=== PATIENT | male | born 1950 | race Caucasian/White ===

== ENCOUNTER 2017-07-14 15:00 | Emergency (ER) | payer OTHER ==
[2017-07-14 15:24] VITALS: BP 183/81; PULSE 86; RESP 18; TEMP 98.9; O2SAT 99
[2017-07-14 16:00] LABS: AUTOMATED NEUTROPHIL # 4.1 TH/MM3 (1.8-7.7); BASOPHIL % 0.5 % (0.0-2.0); EOSINOPHIL % 0.6 % (0.0-4.0); HEMATOCRIT 37.4 % (39.0-51.0); HEMOGLOBIN 12.7 GM/DL (13.0-17.0); LYMPH % 27.6 % (9.0-44.0); LYMPHOCYTE # 1.9 TH/MM3 (1.0-4.8); MEAN CELL VOLUME 98.5 FL (80.0-100.0); MEAN CORPUSCULAR HEMOGLOBIN 33.6 PG (27.0-34.0); MEAN CORPUSCULAR HGB CONC 34.1 % (32.0-36.0); MEAN PLATELET VOLUME 8.3 FL (7.0-11.0); MONO % 12.9 % (0.0-8.0); MONOCYTE # 0.9 TH/MM3 (0-0.9); NEUT % 58.4 % (16.0-70.0); PLATELET COUNT 136 TH/MM3 (150-450); RED BLOOD COUNT 3.79 MIL/MM3 (4.50-5.90); RED CELL DISTRIBUTION WIDTH 14.3 % (11.6-17.2)
[2017-07-14 16:17] LABS: ALBUMIN 3.8 GM/DL (3.4-5.0); ALT (GPT) 38 U/L (12-78); AST (GOT) 50 U/L (15-37); BLOOD UREA NITROGEN 11 MG/DL (7-18); CALCIUM 8.7 MG/DL (8.5-10.1); CHLORIDE 103 MEQ/L (98-107); CREATININE 1.02 MG/DL (0.60-1.30); GLOMERULAR FILTRATION RATE 73 ML/MIN (>89); GLUCOSE,RANDOM 104 MG/DL (74-106); SODIUM (NA) 138 MEQ/L (136-145)
[2017-07-14 16:21] LABS: ALKALINE PHOSPHATASE 93 U/L (45-117); TOTAL BILIRUBIN ADULT 0.6 MG/DL (0.2-1.0)
[2017-07-14 16:37] LABS: ACETAMINOPHEN LESS THAN 2.0 MCG/ML (10.0-30.0)
--- NOTE | 2017-07-14 16:52 | RADRPT ---
EXAM DATE/TIME: 07/14/2017 16:34 [place] COMPARISON: No previous studies available for comparison. INDICATIONS : Altered mental status with confusion. RADIATION DOSE: 56.35 CTDIvol (mGy) MEDICAL HISTORY : None SURGICAL HISTORY : None. ENCOUNTER: Initial ACUITY: 1 day PAIN SCALE: 1/10 LOCATION: Bilateral cranial TECHNIQUE: Multiple contiguous axial images were obtained of the head. Using automated exposure control and adj ustment of the mA and/or kV according to patient size, radiation dose was kept as low as reasonably a chievable to obtain optimal diagnostic quality images. DICOM format image data is available electro nically for review and comparison. FINDINGS: CEREBRUM: The ventricles are normal for age. No evidence of midline shift, mass lesion, hemorrhage or acute in farction. No extra-axial fluid collections are seen. POSTERIOR FOSSA: The cerebellum and brainstem are intact. The 4th ventricle is midline. The cerebellopontine angle i s unremarkable. EXTRACRANIAL: The visualized portion of the orbits is intact. SKULL: The calvaria is intact. No evidence of skull fracture. CONCLUSION: Negative for acute process.. Fred Grady MD FACR on July 14, 2017 at 16:49 Board Certified Radiologist. This report was verified electronically.
--- NOTE | 2017-07-14 17:25 | PD ---
HPI Chief Complaint: Psychiatric Symptoms Time Seen by Provider: 16:45 Travel History International Travel<30 days: No Contact w/Intl Traveler<30days: No Traveled to known affect area: No History of Present Illness HPI 66-year-old male that presents to the ED for evaluation of psychiatric illness. Patient was Christensen acted by police after apparently he has been found to be somewhat altered in mentation. Apparently per Christensen act he's had a decline in his mental status. Per patient he is about to be evicted from his apartment tender to possible altered mental status. Patient apparently went see his provider recently but he cannot remember that he actually saw his provider. This concerned the provider as well as police and they Christensen acted him for his unsafety. He denies any chest pain or shortness of breath. No other medical issues. Per patient he takes no medications. Per report there is concerned the patient might be having early dementia. He has no allergies to medication. Symptoms per patient appear to be ongoing since last year. He himself denies any mental issues. It does tell me that he does smoke weed and drinks beer on occasion otherwise no other substance abuse. Has not seen a psychiatrist. Has never been Christensen acted in the past. Symptoms appear to have worsened today secondary to patient's inability to remember previous visit with his doctor. [facility] Past Medical History Medical History: Denies Significant Hx ?: Not Past Surgical History Surgical History: No Previous Surgery Social History Alcohol Use: No Tobacco Use: Yes Substance Use: Yes (MARIJUANA ) Allergies-Medications (Allergen,Severity, Reaction): Coded Allergies: No Known Allergies (Verified Allergy, Unknown, 07/14/17) Reported Meds & Prescriptions Reported Meds & Active Scripts Active No Active Prescriptions or Reported Medications Review of Systems Except as stated in HPI: all other systems reviewed are Neg Physical Exam Narrative GENERAL: SKIN: Warm and dry. HEAD: Atraumatic. Normocephalic. EYES: Pupils equal and round. No scleral icterus. No injection or drainage. ENT: No nasal bleeding or discharge. Mucous membranes pink and moist. Tongue is midline. No uvula devia NECK: Trachea midline. No JVD. CARDIOVASCULAR: Regular rate and rhythm. No murmurs, S3, S4. RESPIRATORY: No accessory muscle use. Clear to auscultation. Breath sounds equal bilaterally. GASTROINTESTINAL: Abdomen soft, non-tender, nondistended. Hepatic and splenic margins not palpable. MUSCULOSKELETAL: Extremities without clubbing, cyanosis, or edema. No obvious deformities. Full range of motion of the upper and lower extremities bilaterally. 2+ pulses bilaterally. NEUROLOGICAL: Awake and alert. No obvious cranial nerve deficits. Motor grossly within normal limits. Five out of 5 muscle strength in the arms and legs. Normal speech. PSYCHIATRIC: Appropriate mood and affect; insight and judgment normal. Data Data Last Documented VS Vital Signs Date Time Temp Pulse Resp B/P (MAP) Pulse Ox O2 Delivery O2 Flow Rate FiO2 07/15/17 04:00 98.5 88 17 129/66 (87) 96 Room Air Orders Orders Complete Blood Count With Diff (07/14/17 15:26) Comprehensive Metabolic Panel (07/14/17 15:26) Psych Screen (07/14/17 15:26) Drug Screen, Random Urine (07/14/17 15:26) Alcohol (Ethanol) (07/14/17 15:26) Salicylates (Aspirin) (07/14/17 15:26) Tylenol (Acetaminophen) (07/14/17 15:26) Ct Brain W/O Iv Contrast(Rout) (07/14/17 ) Diet Regular Basic (07/15/17 Breakfast) Diet Regular Basic (07/15/17 Lunch) Ed Discharge Order (07/15/17 14:08) Labs Laboratory Tests Test 07/14/17 15:36 White Blood Count 7.0 TH/MM3 Red Blood Count 3.79 MIL/MM3 Hemoglobin 12.7 GM/DL Hematocrit 37.4 % Mean Corpuscular Volume 98.5 FL Mean Corpuscular Hemoglobin 33.6 PG Mean Corpuscular Hemoglobin Concent 34.1 % Red Cell Distribution Width 14.3 % Platelet Count 136 TH/MM3 Mean Platelet Volume 8.3 FL Neutrophils (%) (Auto) 58.4 % Lymphocytes (%) (Auto) 27.6 % Monocytes (%) (Auto) 12.9 % Eosinophils (%) (Auto) 0.6 % Basophils (%) (Auto) 0.5 % Neutrophils # (Auto) 4.1 TH/MM3 Lymphocytes # (Auto) 1.9 TH/MM3 Monocytes # (Auto) 0.9 TH/MM3 Eosinophils # (Auto) 0.0 TH/MM3 Basophils # (Auto) 0.0 TH/MM3 CBC Comment DIFF FINAL Differential Comment Blood Urea Nitrogen 11 MG/DL Creatinine 1.02 MG/DL Random Glucose 104 MG/DL Total Protein 8.0 GM/DL Albumin 3.8 GM/DL Calcium Level 8.7 MG/DL Alkaline Phosphatase 93 U/L Aspartate Amino Transf (AST/SGOT) 50 U/L Alanine Aminotransferase (ALT/SGPT) 38 U/L Total Bilirubin 0.6 MG/DL Sodium Level 138 MEQ/L Potassium Level 3.5 MEQ/L Chloride Level 103 MEQ/L Carbon Dioxide Level 27.0 MEQ/L Anion Gap 8 MEQ/L Estimat Glomerular Filtration Rate 73 ML/MIN Salicylates Level 5.3 MG/DL Urine Opiates Screen NEG Acetaminophen Level LESS THAN 2.0 MCG/ML Urine Barbiturates Screen NEG Urine Amphetamines Screen NEG Urine Benzodiazepines Screen NEG Urine Cocaine Screen NEG Urine Cannabinoids Screen POS Ethyl Alcohol Level LESS THAN 3 MG/DL MDM Medical Decision Making Medical Screen Exam Complete: Yes Emergency Medical Condition: Yes Medical Record Reviewed: Yes Interpretation(s) CBC & BMP Diagram 07/14/17 15:36 Total Protein 8.0, Albumin 3.8, Calcium Level 8.7, Alkaline Phosphatase 93, Aspartate Amino Transf (AST/SGOT) 50 H, Alanine Aminotransferase (ALT/SGPT) 38, Total Bilirubin 0.6 tox positive for marijuana Differential Diagnosis Depression versus suicidal ideation versus anxiety versus adjustment disorder versus mood disorder versus bipolar disorder versus schizophrenia versus paranoid disorder versus psychosis versus substance abuse versus alcohol abuse versus alcohol induced psychosis versus homicidality addition versus cutting versus personality disorder Narrative Course 66-year-old male that presents to the ED for evaluation of psych. Patient was properly examined and was found to have signs and symptoms consistent with psychiatric illness. No sign of acute medical distress. Labs and imaging ordered. Labs and imaging were negative for acute disease. This appears to be possible early dementia. Patient was medically clear. Okay to be seen by psych. Mental health screening was discussed with the patient. Patient was evaluated by Verenice BECKER for psychiatry and patient was deemed dischargeable. Patient voices no complaints. Patient is here is to go home. Patient was given outpatient resources to help him. Patient understands reasons to come back. See ED worsening symptoms. Diagnosis Primary Impression: Dementia Qualified Codes: F03.90 - Unspecified dementia without behavioral disturbance Patient Instructions: General Instructions Additional Instructions: F/u with PCP. See ED if worst. Med/Other Pt SpecificInfo: No Change to Meds Scripts No Active Prescriptions or Reported Meds Disposition: 01 DISCHARGE HOME Condition: Matt Savage Jul 14, 2017 17:25
[2017-07-14 19:00] VITALS: BP 150/73; PULSE 63; RESP 17; TEMP 98.2; O2SAT 99
[2017-07-14 22:56] VITALS: RESP 18
[2017-07-15 04:00] VITALS: BP 129/66; PULSE 88; RESP 17; TEMP 98.5; O2SAT 96
--- NOTE | 2017-07-15 13:43 | PD ---
History of Present Illness Chief Complaint: Psychiatric Symptoms Time Seen by Provider: 13:15 Travel History International Travel<30 Days: No Contact w/Intl Traveler<30days: No Known affected area: No Legal Status Legal Status: Christensen Act Christensen Act Signed By: YUDI MAYO LCSW AT [place] History of Present Illness: History of Present Illness HPI 66-year-old male with reported history of PTSD that presents to the ED on a Christensen act initiated by a social security benefits interviewer at the [place] [facility] for evaluation of psychiatric illness. The Christensen act report alleges that his memory has declined significantly in the last 2 months. That he did not remember meeting with providers during her last 7 days. Jerrell is confused and agitated. Jerrell is incapable of taking care of himself. Due to the that his decline in memory he has been evicted from apartment at 08/03/17. Electronic medical record is reviewed. No previous contact with [facility] psychiatry. Current toxicology is positive for cannabinoids. Patient was monitored in secure environment and presented no behavioral concerns. He makes his needs known. No suicidality. Patient is alert, dressed in hospital gown with appropriate hygiene and grooming. Oriented 4. Gives the name of the president as Steph. His speech is clear logical and goal-directed. He is able to answer questions appropriately. There is no evidence of any hallucinations, delusions, paranoia , no serjio or hypomania. Recall is 3 out of 3, 2 out of 3, and 2 out of 3. He is able to spell the word world both forwards and backwards. Patient denies any significant depression or anxiety. He states that he rented an apartment approximately 1-1/2 year ago and has been paying his rent and taking care of himself. 2 weeks ago his toilet broke down and if the management company has not fixed it. He therefore decided that he was not going to pay his rent until the toilet got repaired. There is no suicidal or homicidal ideation, intent or plan. PFSH Past Medical History Medical History: Denies Significant Hx ?: Not Past Surgical History Surgical History: No Previous Surgery Psychiatric History Psychiatric History Hx Psychiatric Treatment: HX: PTSD ([place] ) DENIES CURRENTLY TAKING ANY PSYCHIATRIC MEDICATIONS REPORTS THAT THE ONLY TIME HE MUST SPEAK TO A PSYCHIATRIST/THERAPIST IS AT HIS REGULAR VA APPOINTMENTS, WHEN IT IS MANDATORY. History of Inpatient Treatment: No Guns or firearms in home: No Social History x 15 years. Retired . Service connected disability. Lives by himself. Hx Alcohol Use: No Hx Tobacco Use: Yes Hx Substance Use: Yes Substance Use Type: Alcohol Hx of Substance Use Treatment: Yes Family Psychiatric History Denies any. Allergies-Medications (Allergen,Severity, Reaction): Coded Allergies: No Known Allergies (Verified Allergy, Unknown, 07/14/17) Reported Meds & Prescriptions Reported Meds & Active Scripts Active No Active Prescriptions or Reported Medications Mental Status Examination Appearance: Appropriate Consciousness: Alert Orientation: x4 Motor Activity: Normal gait Speech: Unremarkable Language: Adequate Fund of Knowledge: Adequate Attention and Concentration: Adequate Memory: Unremarkable Mood: Appropriate Affect: Appropriate Thought Process & Associations: Intact, Logical, Goal directed Thought Content: Appropriate Hallucination Type: None Delusion Type: None Suicidal Ideation: No Suicidal Plan: No Suicidal Intention: No Homicidal Ideation: No Homicidal Plan: No Homicidal Intention: No Insight: Adequate Judgment: Adequate MDM Medical Decision Making Medical Record Reviewed: Yes Assessment/Plan History of Present Illness HPI 66-year-old male with history of PTSD who was placed under Christensen act by social security benefits interviewer who alleges the patient has been having decline in his memory over the last 2 months. There is no psychosis, no serjio, no hypomania. There is no suicidal or homicidal ideation, intent or plan. The patient does not present significant cognitive impairment and he appears to be taking care of himself appropriately. He does not meet criteria under the Christensen act. He may be experiencing some age related cognitive decline but does not present a risk to self or others at this time. The Christensen act is lifted. Psychiatrically cleared for discharged. Orders Orders Complete Blood Count With Diff (07/14/17 15:26) Comprehensive Metabolic Panel (07/14/17 15:26) Psych Screen (07/14/17 15:26) Drug Screen, Random Urine (07/14/17 15:26) Alcohol (Ethanol) (07/14/17 15:26) Salicylates (Aspirin) (07/14/17 15:26) Tylenol (Acetaminophen) (07/14/17 15:26) Ct Brain W/O Iv Contrast(Rout) (07/14/17 ) Diet Regular Basic (07/15/17 Breakfast) Diet Regular Basic (07/15/17 Lunch) Results Vital Signs Date Time Temp Pulse Resp B/P (MAP) Pulse Ox O2 Delivery O2 Flow Rate FiO2 07/15/17 04:00 98.5 88 17 129/66 (87) 96 Room Air 07/14/17 22:56 18 07/14/17 19:00 98.2 63 17 150/73 (98) 99 Room Air 07/14/17 15:24 98.9 86 18 183/81 (115) 99 Laboratory Tests Test 07/14/17 15:36 White Blood Count 7.0 Red Blood Count 3.79 Hemoglobin 12.7 Hematocrit 37.4 Mean Corpuscular Volume 98.5 Mean Corpuscular Hemoglobin 33.6 Mean Corpuscular Hemoglobin Concent 34.1 Red Cell Distribution Width 14.3 Platelet Count 136 Mean Platelet Volume 8.3 Neutrophils (%) (Auto) 58.4 Lymphocytes (%) (Auto) 27.6 Monocytes (%) (Auto) 12.9 Eosinophils (%) (Auto) 0.6 Basophils (%) (Auto) 0.5 Neutrophils # (Auto) 4.1 Lymphocytes # (Auto) 1.9 Monocytes # (Auto) 0.9 Eosinophils # (Auto) 0.0 Basophils # (Auto) 0.0 CBC Comment DIFF FINAL Differential Comment Blood Urea Nitrogen 11 Creatinine 1.02 Random Glucose 104 Total Protein 8.0 Albumin 3.8 Calcium Level 8.7 Alkaline Phosphatase 93 Aspartate Amino Transf (AST/SGOT) 50 Alanine Aminotransferase (ALT/SGPT) 38 Total Bilirubin 0.6 Sodium Level 138 Potassium Level 3.5 Chloride Level 103 Carbon Dioxide Level 27.0 Anion Gap 8 Estimat Glomerular Filtration Rate 73 Salicylates Level 5.3 Urine Opiates Screen NEG Acetaminophen Level LESS THAN 2.0 Urine Barbiturates Screen NEG Urine Amphetamines Screen NEG Urine Benzodiazepines Screen NEG Urine Cocaine Screen NEG Urine Cannabinoids Screen POS Ethyl Alcohol Level LESS THAN 3 Diagnosis Primary Impression: PTSD (post-traumatic stress disorder) Additional Impression: Dementia Psychiatrically Cleared: Yes Med/ Other Pt Specific Info: No Meds Exist/No RX given Prescriptions No Active Prescriptions or Reported Meds Disposition: 01 DISCHARGE HOME Condition: Stable Problem Qualifiers Additional Impression: Dementia Qualified Codes: F03.90 - Unspecified dementia without behavioral disturbance Verenice Meza Jul 15, 2017 13:43
== END 2017-07-15 14:40 | disposition home or self-care (01) ==
LOC: NEDAMB 15:00 → NEPJ 07-15 14:40
DX: F43.10 Post-traumatic stress disorder, unspecified (principal); F03.90 Unspecified dementia, unspecified severity, without behavioral disturbance, psychotic disturbance, mood disturbance, and anxiety; Z87.891 Personal history of nicotine dependence; F12.90 Cannabis use, unspecified, uncomplicated
CPT/HCPCS: 70450; 80053; 80307; 85025; 99284